=== PATIENT | female | born 1980 | race Caucasian/White ===

== ENCOUNTER 2018-11-21 21:22 | Emergency (ER) | payer MEDICAID ==
[~2018-11-21] VITALS: Ht 162.6 cm; Wt 54.4 kg
--- NOTE | 2018-11-21 21:30 | NUR ---
upon arrival pt. went to use the bathroom urine specimen was requested, pt. refused to collect urine stating "I went to do #2 I don't have urine" .
[2018-11-21] MEDS ORDERED: AMPH20TA3 PO (21:46)
[2018-11-21] MEDS ORDERED: IV NORMAL SALINE 1000 ML BAG IV ONE (22:00)
[2018-11-21] MEDS ORDERED: ONDANSETRON 4 MG/2 ML VIAL IV ONE (22:00)
--- NOTE | 2018-11-21 22:00 | NUR ---
IV G20 to LFA. started as ordered, normal saline started, pt. sleeping comfortably.
[2018-11-21 22:07] LABS: BASOPHILS % (AUTO) 0.2 % (0.0-2.0); EOSINOPHILS # (AUTO) 0.1 K/uL (0.0-0.7); EOSINOPHILS % (AUTO) 0.4 % (0.0-7.0); HEMATOCRIT 37.6 % (31.2-41.9); HEMOGLOBIN 12.6 g/dL (10.9-14.3); LYMPHOCYTES # (AUTO) 0.4 K/uL (20.0-40.0); LYMPHOCYTES % (AUTO) 3.2 % (20.5-51.5); MEAN CORPUSCULAR HEMOGLOBIN 29.8 uug (24.7-32.8); MEAN CORPUSCULAR HGB CONC 33 g/dL (32.3-35.6); MEAN CORPUSCULAR VOLUME 89.3 fL (75.5-95.3); MONOCYTES # (AUTO) 0.7 K/uL (2.0-10.0); MONOCYTES % (AUTO) 5.3 % (0.0-11.0); NEUTROPHILS # (AUTO) 12.1 K/uL (1.8-8.9); NEUTROPHILS % (AUTO) 90.9 % (38.5-71.5); PLATELET COUNT (AUTO) 285 K/uL (179-408); RED BLOOD CELL COUNT(AUTO) 4.21 MIL/uL (3.63-4.92); WHITE BLOOD COUNT (AUTO) 13.3 K/uL (3.8-11.8)
[2018-11-21] MEDS ORDERED: ONDANSETRON 4 MG/2 ML VIAL ONE (22:08)
[2018-11-21 22:19] LABS: CARBON DIOXIDE 26 mmol/L (21-32); CHLORIDE 104 mmol/L (98-107); CREATININE 0.6 mg/dL (0.6-1.3); GLUCOSE 99 mg/dL (74-106); UREA NITROGEN, BLOOD 11 mg/dL (7-18)
[2018-11-21 22:23] LABS: ALANINE AMINOTRANSFERASE 43 U/L (14-59); ALKALINE PHOSPHATASE 48 U/L (50-136); ASPARTATE AMINOTRANSFERASE 32 U/L (15-37); BILIRUBIN,DIRECT 0.1 mg/dL (0.0-0.2); BILIRUBIN,TOTAL 0.3 mg/dL (0.2-1.0); LIPASE 221 U/L (73-393)
--- NOTE | 2018-11-21 22:45 | NUR ---
DCD instructions provided to pt. who is refusing to sign and received her prescriptions, pt. getting agitated, started screaming stating "I'm not leaving screaming, and agitated". Pt. escorted out by security personnel.
== END 2018-11-21 22:51 | disposition home or self-care (01) ==
LOC: ER 21:24
DX: R11.10 Vomiting, unspecified (principal); R19.7 Diarrhea, unspecified; F98.9 Unspecified behavioral and emotional disorders with onset usually occurring in childhood and adolescence; Z88.1 Allergy status to other antibiotic agents; Z88.5 Allergy status to narcotic agent; Z88.8 Allergy status to other drugs, medicaments and biological substances; Z79.899 Other long term (current) drug therapy
CPT/HCPCS: 36415; 80048; 80076; 83690; 84702; 85025; 96361; 96374; 99283; J2405; A4663; J7030